=== PATIENT | female | born 1980 | race Caucasian/White ===

== ENCOUNTER 2018-08-08 16:55 | Emergency (ER) | payer OTHER ==
--- NOTE | 2018-08-08 18:27 | EDPHY ---
HPI/HX/ROS/PE/MDM Narrative: CLINICAL IMPRESSION: Post concussive syndrome, right peripheral blurred vision ASSESSMENT/PLAN: [Patient is a 37-year-old female who presents to the emergency department with complaints of ongoing headache and faint blurry right peripheral vision after sustaining a head injury 3 days ago. Patient is afebrile and nontoxic-appearing , she is in no acute distress on arrival. Her neurological exam is grossly normal with no focal deficit. Extraocular movements were full with no evidence of entrapment, vision was full to confrontation and funduscopic exam unremarkable. She has no new focal neurologic deficit, there has been no altered mentation, there are no clinical findings to suggest skull fracture, she has no bleeding disorder, there has been no vomiting and no posttraumatic seizure. I have a very low clinical suspicion for serious traumatic brain injury. Given the patients history and physical, we feel a head CT is not indicated at this time. Ophthalmology was consulted, I spoke directly with Dr. Wills who recommended formal ophthalmologic consultation as an outpatient. History and physical examination is most consistent with post concussive syndrome and subjective right peripheral blurred vision. There were no findings to suggest skull fracture, intracranial hemorrhage or contusion, subarachnoid hemorrhage, subdural, epidural hematoma, acute angle closure glaucoma, acute loss of vision; from CRAO, temporal arteritis, retinal detachment or optic neuritis or other ophthalmological emergency. The patient was observed for period of time, her neurological exam remained grossly normal with no focal deficit. The patient does not have a primary care provider, I provided a referral for her. I have also spoken with Ophthalmology whom she will follow up with as an outpatient. Strict return precautions were discussed - she will return to the emergency department for altered mentation, lethargy, vomiting, seizure, abnormal movements or for any other concerning symptom. Patient verbalizes understanding and is in agreement with this plan. This case was discussed with and the patient was seen by Dr. Kim. DIFFERENTIAL DX: Head injury including but not limited to concussion, skull fracture, intraparenchymal contusion, subarachnoid, subdural and epidural hematoma. ED COURSE: 6:40 p.m.: Case discussed with Dr. Kim. 6:58 p.m.: Visual acuity 20/20 individually, 20/25 with both eyes open 7:09 p.m.: I spoke with rouge sifter Dr. Wills, no need for emergent consultation. Patient will call her office tomorrow morning to schedule formal ophthalmologic follow-up. CHIEF COMPLAINT: Headache, faint blurry right peripheral vision HPI: Peri Morales is a 33-year-old female with no significant medical history who presents to the emergency department complaining of headache and mild right peripheral blurred vision after sustaining a head injury this past Monday. Patient reports she was wearing a helmet while [place], she fell hitting her head on the right posterior side. She endorses seeing black at that time, unknown loss of consciousness. The patient immediately experienced posterior and right-sided headache as well as mildly diminished and blurred right peripheral vision. She had no dizziness, vision loss and she denies any neck pain, back pain, ataxia, focal weakness, chest pain, shortness of breath or abdominal pain. She has not taken anything for her headache. She reports over the last several days she has been following strict brain rest, today when out for the 1st time and felt that her headache increased. She is not on any anti-platelet or anticoagulation therapy, she has no known clotting disorder. PMH: Denies Pertinent Past Surgical History: Denies Family History: Noncontributory Social History: Denies alcohol, illicit drug use and smoking REVIEW OF SYSTEMS: All other systems negative Constitutional: No fever, no chills, appetite change. Eyes: Mild blurred peripheral right vision; No discharge ENT: No sore throat, congestion, ear pain. Cardiovascular: No chest pain, no palpitations. Respiratory: No cough, no shortness of breath. Gastrointestinal: No abdominal pain, no vomiting, diarrhea. Genitourinary: No hematuria, dysuria, flank pain, pelvic pain Musculoskeletal: No back pain, joint swelling, joint pain, myalgias. Skin: No rashes, color change. Neurological: Headache; No dizziness or weakness. PHYSICAL EXAM: General Appearance: Alert, oriented, appropriate, cooperative, NAD, well hydrated, non-toxic appearing, VSS, no hypoxia. HEENT: TMs are clear bilaterally no perforation, hemotympanum or FB, no injection, no evidence of serous or mucopurulent otitis. Oropharynx clear is no erythema or exudates, no tonsillar hypertrophy or asymmetry. Dentition without abnormality. No Warner sign or raccoon eyes. Eyes: [PERRLA, no acute vision change, nystagmus, swelling, discharge, pain or photosensitivity on my exam. Conjunctiva pink, no pallor or injection. Visual chew = WNL, full to confrontation. EOMI. PERRLA. No eyelid edema, blepharitis, or cellulitis. No conjunctival hemorrhages, hyphema, or hypopyon. Funduscopic exam- no papilledema, retinal hemorrhages or cotton wool spots observed (w/out eye dilated). Neck: Supple, nontender, no lymphadenopathy, no midline pain, FROM, no meningismus. Respiratory: There are no retractions, lungs are clear to auscultation. Cardiac: Regular rate and rhythm, no murmurs or gallops. Gastrointestinal: Abdomen is soft, nontender, bowel sounds normal, no masses/ hernia, no rigidity, guarding or focal peritoneal findings. Neurological: Alert and oriented x 3, CN 2-12 grossly intact, normal gait no ataxia, DTR's intact, normal sensation and strength Skin: Warm, dry, no rashes, no nodules on palpation. Musculoskeletal: Extremities are symmetrical, full range of motion, no tenderness, deformity, swelling, or erythema. Psychiatric: Patient is oriented X 3, there is no agitation. MEDICAL DECISION MAKING: Patient was seen under the direct supervision of Dr. Kim. Diagnosis: Concussion, right peripheral blurry vision. Summary: See Assessment and Plan for summary of ED visit Clinical lab tests: NA. Independent visualization of images, tracing, or specimens: NA. Decision to obtain medical records or history from someone other than the patient: No Review / Summarize previous medical records: No Discussed patient with another provider: Yes, Dr. Kim and Ophthalmology Dr. Wills Patient Progress: Stable, discharged home . (Eileen Moran) ED Course: This patient was seen and examined by me. Neurologic exam is normal. She has a mild headache and I do not feel that neuro imaging is indicated in this patient. I agree with Camilla's assessment and plan. (Beatris Kim) General Initial Vital Signs: Initial Vital Signs Temperature (C) 36.9 C 08/08/18 16:59 Heart Rate 59 L 08/08/18 16:59 Respiratory Rate 16 08/08/18 16:59 Blood Pressure 129/96 H 08/08/18 16:59 O2 Sat (%) 100 08/08/18 16:59 O2 Delivery Mode Room Air Allergies/Adverse Reactions: gluten Allergy (Verified 08/08/18 16:59) Penicillins Allergy (Verified 08/08/18 16:58) Sulfa (Sulfonamide Antibiotics) Allergy (Verified 08/08/18 16:58) Home Medications: Medication Instructions Recorded NK [No Known Home Meds] 08/08/18 Departure - Departure Disposition: Home, Routine, Self-Care Clinical Impression: Post concussion syndrome, Blurred vision, right eye Condition: Good Instructions: Concussion (ED) Additional Instructions: GRADUAL [id number]-Lakuaejh PROTOCOL Patient must be symptom free for 24 hours before progressing to the next step. If patient has symptoms during Step's 2-6, stop activity and return previous step. Patient can not progress to next step unless current step can be completed with out any symptoms (ie headache, dizziness, confusion...) Bright lights, TV, computers, music, reading can trigger or worsen concussion symptoms thus should be avoided or used in moderation. Step 1. NO same day return to play, rest only , do not proceed to Step 2 until all symptoms have resolved Step 2. LIGHT aerobic exercise (ie walking, swimming or stationary cycling), while keeping intensity < 70% max heart rate Step 3. Sport-specific exercise (ie skating drills in ice hockey-no passing, running drills in soccer-no passing), NO HEAD IMPACT ACTIVITIES Step 4. NON-contact training, with progression to more complex drills (ie passing drills) NO HEAD IMPACT ACTIVITIES Step 5. Full-contact practice AFTER getting medical clearance Step 6. Return to game play This was based from: Consensus statement on concussion in sport: the 4th International Conference on Concussion in Sport held [place]. Br J Sports MEd. 2013;47(5):250- 258 You may take Tylenol and/or ibuprofen as needed for your headache. I recommend 500 mg to a 1000 mg of Tylenol every 6-8 hours with food and a full glass of water. Do not exceed 4000 mg in a 24 hr period. Stop Taking if this upsets her stomach. I recommend 400 mg of ibuprofen every 6 hr with food in a full glass of water. Do not exceed 2400 mg in a 24 hr period. Soft taking it this upsets her stomach. DISCHARGE INSTRUCTIONS FROM YOUR DOCTOR Thank you for visiting our emergency department today. Please keep in mind that discharge from the emergency department does not mean that there is nothing wrong - it simply means that we have not identified an emergency condition that requires further evaluation or treatment in the hospital. You should always plan to follow up with primary care for re-evaluation of your condition in the next 2-3 days. Ophthalmology has been consulted, spoke directly with Dr. Wills and she would like you to call her office tomorrow morning at [phone] to schedule follow up for formal ophthalmologic evaluation. If you have been referred to a specialist, please call as soon as possible (today or tomorrow) to schedule your follow up appointment at the appropriate time. People present with illnesses and injuries in different ways, and it is always possible that we have missed something. You may always return for re-evaluation if symptoms worsen or if they are not improving or if you develop new/different symptoms. Again, thank you for choosing our emergency department. We hope that you feel better. Referrals: NONE *PRIMARY CARE P,. [Primary Care Provider] - As per Instructions Kamran Arredondo MD [Medical Doctor] - 2-3 days, call for appt. (Please establish care with a primary care provider) Kaity Wills MD [Non Staff Provider ()] - 1 day without fail Stand Alone Forms: Work Excuse
[2018-08-08 19:07] VITALS: BP 119/81
== END 2018-08-08 19:46 | disposition home or self-care (01) ==
DX: S06.0X9A Concussion with loss of consciousness of unspecified duration, initial encounter (principal); H53.8 Other visual disturbances; V00.321A Fall from snow-skis, initial encounter; Y93.23 Activity, snow (alpine) (downhill) skiing, snowboarding, sledding, tobogganing and snow tubing

== ENCOUNTER 2018-11-08 06:34 | Day surgery (SDC) | payer OTHER ==
[2018-11-08] MEDS ORDERED: LIDOCAINE 1% 2 ML INJ ID PRN (06:48)
[2018-11-08] MEDS ORDERED: LR 1,000 ML IV ONE (06:48)
[2018-11-08] MEDS ORDERED: MIDAZOLAM 2 MG/2 ML VIAL ONE (07:59)
[2018-11-08] MEDS ORDERED: MIDAZOLAM 2 MG/2 ML VIAL IVP ONE (07:59)
[2018-11-08] MEDS ORDERED: NALOXONE HCL 0.4 MG/ML INJ IVP PRN ×2 (08:00)
[2018-11-08] MEDS ORDERED: ALBUTEROL 3 ML DEYVIAL IH PRN (08:00)
[2018-11-08] MEDS ORDERED: DEXAMETHASONE 4 MG/ML VIAL IVP PRN (08:00)
[2018-11-08] MEDS ORDERED: HYDROmorphONE/DILAUDID 2 MG/ML INJ IVP PRN (08:00)
[2018-11-08] MEDS ORDERED: HYDROCODONE/APAP 5/325 TAB PO PRN (08:00)
[2018-11-08] MEDS ORDERED: ONDANSETRON 4 MG/2 ML VIAL IVP PRN (08:00)
[2018-11-08] MEDS ORDERED: oxyCODONE IR 5 MG TAB PO PRN (08:00)
[2018-11-08] MEDS ORDERED: NS 500 ML IV PRN (08:00)
--- NOTE | 2018-11-08 08:00 | PDANEPAE ---
ANE History of Present Illness here for hysteroscopy ANE Past Medical History - Cardiovascular History Hx Hypertension: No Hx Arrhythmias: No Hx Chest Pain: No Hx Coronary Artery / Peripheral Vascular Disease: No Hx CHF / Valvular Disease: No Hx Palpitations: No - Pulmonary History Hx COPD: No Hx Asthma/Reactive Airway Disease: No Hx Recent Upper Respiratory Infection: No Hx Oxygen in Use at Home: No Hx Sleep Apnea: No Sleep Apnea Screening Result - Last Documented: Negative - Neurologic History Hx Cerebrovascular Accident: No Hx Seizures: No Hx Dementia: No Neurologic History Comment: CONCUSSION IN JUL 2018- SYMPTOM FREE X 1 MO - Endocrine History Hx Diabetes: No Endocrine History Comment: BARRINGTON'S THYROIDITIS- AT A LOW LEVEL - Renal History Hx Renal Disorders: No - Liver History Hx Hepatic Disorders: No - Neurological & Psychiatric Hx Hx Neurological and Psychiatric Disorders: No - Cancer History Hx Cancer: No - Congenital Disorder History Hx Congenital Disorders: No - GI History Hx Gastrointestinal Disorders: No Gastrointestinal History Comment: OCC CONSTIPATION WITH TYLENOL - Other Health History Other Health History: NONE - Chronic Pain History Chronic Pain: No - Surgical History Prior Surgeries: WISDOM TEETH EXTRACTED ANE Review of Systems Review of systems is: negative Review of Systems: - Exercise capacity Exercise capacity: >=4 METS METS (RN): 4 METS ANE Patient History - Allergies Allergies/Adverse Reactions: gluten Allergy (Verified 11/06/18 18:16) Penicillins Allergy (Verified 11/06/18 18:16) Sulfa (Sulfonamide Antibiotics) Allergy (Verified 11/06/18 18:16) - Home Medications Home medications: home medication list seen and reviewed Home Medications: NK [No Known Home Meds] 08/08/18 [Last Taken Unknown] - NPO status NPO Status: no food or drink >8 hours NPO Since - Liquids (Date): 11/07/18 NPO Since - Liquids (Time): 22:00 NPO Since - Solids (Date): 11/07/18 NPO Since - Solids (Time): 22:00 - Anes Hx Anes Hx: no prior problems - Smoking Hx Smoking Status: Never smoked - Family Anes Hx Family Hx Anesthesia Complications: SISTER HAD HALLUCINATIONS WITH OPIODS ANE Labs/Vital Signs - Vital Signs Vital Signs: reviewed preoperatively; see RN documention for details Blood Pressure: 106/76 Heart Rate: 68 Respiratory Rate: 16 O2 Sat (%): 65 Height: 168.91 cm Weight: 63.503 kg ANE Physical Exam - Airway Neck exam: FROM Mallampati Score: Class 1 - Pulmonary Pulmonary: no respiratory distress - Cardiovascular Cardiovascular: regular rate and rhythym - ASA Status ASA Status: I ANE Anesthesia Plan Anesthesia Plan: GA with mask
--- NOTE | 2018-11-08 08:08 | PDHPUP ---
History & Physical Update H&P update statement: This history and physical update is based on an assessment of the patient which was completed after admission or registration (within 24 hours), but prior to the surgery/procedure. H&P update: H&P reviewed & patient examined, no change in patient's condition since H&P completed
[2018-11-08] MEDS ORDERED: PROPOFOL/EMULSION 500 MG/50 ML BOTTLE IV ONE (08:09)
[2018-11-08] MEDS ORDERED: fentaNYL 100 MCG/2 ML INJ ONE ×2 (08:17→09:46)
[2018-11-08] MEDS ORDERED: PROPOFOL 200 MG/20 ML VIAL ONE ×4 (08:41→09:13)
--- NOTE | 2018-11-08 09:32 | POSTANESTH ---
Post Anesthetic Evaluation Cardiovascular Status: Normal, Stable Respiratory Status: Normal, Stable Level of Consciousness/Mental Status: Mildly Sleepy, Arousable Pain Control: Adequate, Prn Tx Ordered Nausea/Vomiting Control: Adequate, Prn Tx Ordered Complications Possibly Related to Anesthesia: None Noted
[2018-11-08] MEDS ORDERED: KETOROLAC 30 MG/1 ML SDV IVP ONE (09:35)
[2018-11-08] MEDS: fentaNYL 100 MCG/2 ML INJ IVP PRN ×2 (09:47→10:47)
--- NOTE | 2018-11-08 09:59 | POSTOPPROG ---
Post Op Note Date of Operation: 11/08/18 Surgeon: Vanessa Gage Anesthesiologist: georgette boone Anesthesia: LMA Pre-op Diagnosis: embedded IUD arm, endometrial polyps Post-op Diagnosis: same Indication: needs removal of both Procedure: H/S removal of embedded IUD arm and H/S polypectomy Findings: embedded IUD arm left lower uterine segment, posterior wall polyps Inf/Abcess present in the surg proc area at time of surgery?: No EBL: Minimal Complications: none
[2018-11-08 11:44] VITALS: BP 99/62
--- NOTE | 2018-11-08 11:56 | GOP ---
[f rep st] OPERATIVE REPORT DATE OF OPERATION: 11/08/2018 SURGEON: Vanessa Gage MD ANESTHESIA: General with LMA. ANESTHESIOLOGIST: Gustavo Rocha MD. PREOPERATIVE DIAGNOSIS: 1. Embedded intrauterine device arm. 2. Endometrial polyps. POSTOPERATIVE DIAGNOSIS: 1. Embedded intrauterine device arm. 2. Endometrial polyps. PROCEDURE PERFORMED: Hysteroscopic removal of embedded IUD arm and hysteroscopic polypectomy. FINDINGS: An embedded left-sided IUD arm in the lower uterine segment, and then, endometrial polyps in the fundus of the uterus. ESTIMATED BLOOD LOSS: Minimal. INDICATIONS: Patient is a 38-year-old who has had a ParaGard IUD for 6 years, decided on 10/18/2018, to have it removed as she wants to move towards childbearing. This was removed in the office, but t he left arm of the IUD did not come out with removal. Ultrasound done in the office showed an embedd ed IUD arm and also noted thickened endometrial lining and endometrial polyps on ultrasound. Desires surgical resection on both. DESCRIPTION OF PROCEDURE: With informed consent signed, patient taken to the operating room, placed under general anesthesia without complications. Bladder previously emptied and prepped and draped in the usual sterile fashion. Tenaculum placed on the anterior lip of the cervix and cervix dilated up to 6 mm. The [facility] Ne[facility] ew TruClear hysteroscope placed in the uterine cavity and imbedded IUD arm noted, as well as polyps. Unable to feed the retractor through the hysteroscope, so I used the morcellator to remove all the e ndometrial polyps at the time and switched the hysteroscope to the operative hysteroscope and fed the polyp forceps through this, and I was able to grasp the IUD arm and remove it without complication. This was handed off for specimen. I then went back to make sure that all the remaining tissue was r emoved and hemostasis was obtained. Once this was felt to be completed, the hysteroscope removed. N et fluid deficit was about 500 cc. Patient placed in supine position, awakened in the operating room taken to the recovery room in stabl e condition, tolerating the procedure well. COMPLICATIONS: None. /[id number]/MODL
== END 2018-11-08 11:35 | disposition home or self-care (01) ==
LOC: FSGY 06:34
PROVIDERS: ATTEND Obstetrics & Gynecology Gynecology
PROC: 0UC98ZZ Extirpation of Matter from Uterus, Via Natural or Artificial Opening Endoscopic (ICD-10-PCS; principal; 2018-11-08 08:00)
PROC: 0UB98ZX Excision of Uterus, Via Natural or Artificial Opening Endoscopic, Diagnostic (ICD-10-PCS; principal; 2018-11-08 08:00)
DX: T83.89XA Other specified complication of genitourinary prosthetic devices, implants and grafts, initial encounter (principal); N84.0 Polyp of corpus uteri
CPT/HCPCS: 58558; 58562; C1782; J1885; J2250; J2704; J3010